=== PATIENT | female | born 1985 | race Caucasian/White ===

== ENCOUNTER 2023-04-15 20:58 | Emergency (ER) | payer OTHER, SELFPAY ==
[2023-04-15 21:08] VITALS: BP 182/102; PULSE 79; RESP 18; TEMP 36.4; O2SAT 97; BMI 48.0
[2023-04-15 21:49] LABS: MANUAL DIFF FLAG NO
[2023-04-15 21:53] LABS: Basophils Absolute Auto 0.1 X10*3/uL (0.0-0.2); Basophils Percent Auto 0.7 % (0-2); Eosinophils Percent Auto 0.1 % (0-4); Hematocrit 41.3 % (37.0-47.0); Hemoglobin 13.7 g/dl (12.0-16.0); Imm Gran Abs Auto 0.05 X10*3/uL (0.00-0.03); Imm Gran Pct Auto 0.4 % (0.0-0.4); Lymphocytes Absolute Auto 1.5 X10*3/uL (1.2-4.9); Mean Corpuscular HGB Conc 33.2 g/dl (31.0-35.0); Mean Corpuscular Hemoglobin 27.7 pg (27.0-33.0); Mean Corpuscular Volume 83.6 fL (80.0-98.0); Mean Platelet Volume 9.7 fL (9.4-12.3); Monocytes Absolute Auto 0.3 X10*3/uL (0.1-1.2); Monocytes Percent Auto 2.1 % (2-11); Neutrophils Absolute Auto 11.5 x10*3/uL (2.0-8.3); Neutrophils Percent Auto 85.7 % (45-73); Platelet Count 472 X10*3/uL (160-400); Red Blood Count 4.94 X10*6/uL (4.20-5.50); White Blood Count 13.4 X10*3/uL (4.8-10.8)
[2023-04-15 21:54] LABS: Appearance Urine Cloudy; Color Urine Dark Yellow; Glucose Urine UA Negative (Negative); Leukocyte Esterase Urine Moderate (2+) (Negative); Nitrite Urine Negative (Negative); Specific Gravity - Urine 1.025 (1.005-1.025); UMIC TRIGGER UACC YES; Urine Blood Trace (Negative); Urine Ketones 80 mg/dL (Negative); Urine Protein 100 (2+) mg/dL (Neg-Trace)
[2023-04-15 21:55] LABS: UPreg QC Valid YES; Urine Pregnancy NEGATIVE (NEGATIVE)
[2023-04-15 21:59] LABS: Bacteria Urine 3+ (None Seen); UACC Culture Trigger YES; WBC Urine 21-50 /HPF (0-5)
[2023-04-15 22:07] LABS: Alanine Aminotransferase 23 U/L (0-31); Albumin Level 4.6 g/dL (3.5-5.0); Alkaline Phosphatase 103 U/L (39-117); Anion Gap 18 (12-20); Aspartate Amino Transferase 21 U/L (5-31); Bilirubin Direct 0.2 mg/dL (0.0-0.5); Bilirubin Total 0.7 mg/dL (0.0-1.0); Blood Urea Nitrogen 10 mg/dL (9-16); Calcium 9.8 mg/dL (8.4-10.2); Carbon Dioxide 19 mmol/L (22-29); Chloride 106 mmol/L (96-108); Creatinine Clr Calc Pharmacy 132.1; Estimated Glomerular Filt Rate > 60; Glucose Random 170 mg/dL (60-115); Lipase 33 U/L (8-78); Sodium 139 mmol/L (135-145); Total Protein 7.9 g/dL (6.5-8.0)
[2023-04-15] MEDS: ondansetron HCL 4 MG/2 ML VIAL IVPUSH (23:06)
[2023-04-15] MEDS: 0.9 % Sodium Chloride 1,000 ML 999 ML IV (23:06)
--- NOTE | 2023-04-15 23:06 | PC.NURSE ---
pt assessed, reported nausea and vomiting after eating. last vomitied while in the waiting room, medicated per MAR
--- OUTSIDE RECORDS SUMMARY | 2023-04-15 23:41 | XMS_ITS | Continuity of Care Document ---
Author Name Unknown Organization [facility] Silviano Bryant lt Address [address] [place] [address]- Care Team Providers Care Organ Teacher Name Role Phone Noni CURTAIN STRETCHER ASSEMBLER, Trupti Leahy Primary Care Physician [phone] [place] [facility] [place]): 04/12/22 - 05/12/22 [facility] Adult [address] [place] [address]- Allergies, Adverse Reactions, Alerts No Known Allergies Immunizations Given and Recorded Vaccine Date Status Refusal Reason Influenza Virus Vaccine (oldterm) 04/08/22 Recorde d [id number] 12y+ bivalent booster vax 04/08/22 Recorded SARS-CoV-2 (COVID-19) mRNA-1273 vaccine 04/03/21 R ecorded influenza virus vaccine, inactivated 03/24/21 Chip rded SARS-CoV-2 (COVID-19) Ad26 vaccine 09/11/20 Record ed Medications busPIRone 10 mg oral tablet 20 mg, 2, tablet, By Mouth, 2 times a day, # 360 tablet, Refills 1, Tot. Refills 1, Maintenance, 02/24/22 12:59:00 EDT, Route to Pharmacy Electronically, [facility]/pharmacy #[id number], 174, cm, 07/19/21 8:39:00EST, Height Start Date: 02/24/22 Status: Ordered FLUoxetine 20 mg oral tablet 3 tablet = 60 mg, By Mouth, Daily, # 270 tablet, 1 Refills, Maintenance, 02/24/22 12:59:00 EDT, [facility]/pharmacy #[id number], 174, cm, 07/19/21 8:39:00 EST, Height Start Date: 02/24/22 Status: Ordered lamotrigine 150 mg oral tablet 1 tablet = 150 mg, By Mouth, 2 times a day, # 180 tablet, 1 Refills, Maintenance, 02/24/22 12:59:00EDT, Tablet, [id number], 174, cm, 07/19/21 8:39:00 EST, Height Start Date: 02/24/22 Status: Ordered Multivitamin Daily, 0 Refills, Maintenance, 07/19/21 8:15:00 EST Start Date: 07/19/21 Status: Ordered Paragard IUD Maintenance, inserted in 2011 or 2012, 07/19/21 8:18:00 EST, Supply Start Date: 07/19/21 Status: Ordered Vitamin C By Mouth, Daily, 0 Refills, Maintenance, 07/19/21 8:15:00 EST Start Date: 07/19/21 Status: Ordered Vitamin D3 oral tablet 1 tablet = 10 mcg, By Mouth, Daily, 0 Refills, Maintenance, 07/19/21 9:06:00 EST Start Date: 07/19/21 Status: Ordered Zinc = 140 mg, By Mouth, Daily, 0 Refills, Maintenance, 07/19/21 8:15:00 EST Start Date: 07/19/21 Status: Ordered Problem List Condition Confirmation Course Effective Dates Status Health St atus Informant Bipolar II disorder Confirmed 12/31/18 Active Body mass index 40+ - severely obese Confirmed 10/24/19 Active Irritable bowel syndrome Confirmed Active Severe obesity Confirmed Active Vitamin D deficiency Confirmed 10/24/19 Active Social History Social History Type Response Smoking Status Never (less than 100 in lifetime) entered on: 07/19/21 Sex Patient Care team information Care Team Personnel Name: Trupti Cheney NP Position: [facility] PCO Associate Professional Member Role: PCP Address: Address: [address] [place] [address]- Care Team Related Persons Name: MARCE HYLTON
--- OUTSIDE RECORDS SUMMARY | 2023-04-15 23:41 | XMS_ITS | Continuity of Care Document ---
Author Name Unknown Organization [facility] Silviano Bryant lt Address [address] [place] [address]- Care Team Providers Care Propulsion Motor And Generator Repairer Name Role Phone Trupti Cheney NP Primary Care Physician Encounter [facility] [place](s[place] 07/19/21 - 07/26/21 [facility] Adult [address] [place] [address]- Encounter Diagnosis Annual physical exam(Discharge Diagnosis) - 07/18/21 Bipolar II disorder(Discharge Diagnosis) - 07/19/21 Body mass index 40+ - severely obese(Discharge Diagnosis) - 07/19/21 Vitamin D deficiency(Discharge Diagnosis) - 07/19/21 Attending Physician: Trupti Cheney NP Allergies, Adverse Reactions, Alerts No Known Allergies Immunizations Given and Recorded Vaccine Date Status Refusal Reason SARS-CoV-2 (COVID-19) mRNA-1273 vaccine 04/03/21 R ecorded influenza virus vaccine, inactivated 03/24/21 Chip rded SARS-CoV-2 (COVID-19) Ad26 vaccine 09/11/20 Record ed Medications busPIRone 10 mg oral tablet TAKE 2 TABLETS BY MOUTH TWICE DAILY Start Date: 07/18/21 Status: Ordered FLUoxetine 20 mg oral capsule Refills 0, Maintenance, 07/18/21 23:40:00 EST, Partial fill upon patient request if the prescription is for a schedule II opioid drug. Start Date: 07/18/21 Status: Ordered lamotrigine 150 mg oral tablet TAKE 1 TABLET BY MOUTH TWICE DAILY Start Date: 07/18/21 Status: Ordered Multivitamin Daily, 0 Refills, Maintenance, [...] Date: 07/19/21 Status: Ordered Problem List Condition Effective Dates Status Health Status Inform ant Bipolar II disorder(Confirmed) 12/31/18 Active Body mass index 40+ - severe ly obese(Confirmed) 10/24/19 Active Irritable bowel syndrome(Confirmed) Active Severe obesity(Confirmed) Active Vitamin D deficiency(Confirmed) 10/24/19 Active Diagnosis Diagnosis Type Effective Dates Health Status Clinical Service Informant Annual physical exam Discharge Diagnosis 07/18/21 Bipolar II disorder Discharge Diagnosis 07/19/21 Body mass index 40+ - severely obese Discharge Diagnosis 07/19/21 Vitamin D deficiency Discharge Diagnosis 07/19/21 Procedures Procedure Date Related Diagnosis Body Site Status History of tonsillectomy 1988 Completed Vital Signs Most recent to oldest [Reference Range]: 1 2 Height 174 cm (07/19/21 8:39 AM) 174 cm (07/19/21 7:54 AM) Weight 137.6 kg (07/19/21 7:54 AM) Oxygen Saturation [94-100 %] 99 % (07/19/21 7:54 AM) Pulse Rate [55-90 bpm] 90 bpm (07/19/21 7:54 AM) Body Mass Index [18.5-24.99] 45.45 *>HHI* (07/19/21 7:54 AM) Blood Pressure [90-138/55-84 mm Hg] 128/ 90mm Hg (07/19/21 8:39 AM) 150/76mm Hg *H* (07/19/21 7:54 AM) Respiratory Rate [16-30 br/min] 18 br/mi n (07/19/21 7:54 AM) Temperature [96.8-100.4 DegF] 98.4 DegF (07/19/21 7:54 AM) Mode of Delivery (Oxygen) Nasal cannula (07/19/21 7:54 AM) Blood pressure sites Arm, left (07/19/21 8:39 AM) Arm, left (07/19/21 7:54 AM) Temperature Route Oral (07/19/21 7:54 AM) Weight Obtained Via Standing scale (07/19/21 7:54 AM) Social History Social History Type Response Smoking Status Never (less than 100 in lifetime) entered on: 07/19/21 Sex
--- OUTSIDE RECORDS SUMMARY | 2023-04-15 23:41 | XMS_ITS | Continuity of Care Document ---
Author Name Unknown Organization [facility] Vitaliy Shore Bryant Address [address] [place] [phone]- Care Team Providers Care Military Technology Specialist Name Role Phone Noni LIFTERTrupti Primary Care Physician Encounter [facility] [place] Date(s): 02/23/23 - 03/25/23 [facility] Vitaliy Shore Adult [address] [place] [address]- Allergies, Adverse Reactions, Alerts No Known Allergies Immunizations Given and Recorded Vaccine Date Status Refusal Reason [id number] bivalent booster vax 08/26/22 Recorded Influenza Virus Vaccine (oldterm) 04/08/22 Recorde d [id number] 12y+ bivalent booster vax 04/08/22 Recorded SARS-CoV-2 (COVID-19) mRNA-1273 vaccine 04/03/21 R ecorded influenza virus vaccine, inactivated 03/24/21 Chip rded influenza virus vaccine, inactivated 04/14/20 Chip rded influenza virus vaccine, inactivated 03/07/18 Chip rded influenza virus vaccine, inactivated 06/29/17 Chip rded SARS-CoV-2 (COVID-19) Ad26 vaccine 09/11/20 Record ed tetanus-diphtheria toxoids (Td) 09/08/17 Recorded Medications busPIRone 10 mg oral tablet 2, tablet, By Mouth, 2 times a day, # 360 tablet, Refills 1, Maintenance, 02/17/23 10:23:00 EDT, Route to Pharmacy Electronically, [id number], 174, cm, 10/17/22 7:42:00 EDT, Height Start Date: 02/17/23 Status: Ordered FLUoxetine (Eqv-Prozac) 20 mg oral tablet 3 tablet, By Mouth, Daily, # 270 tablet, 1 Refills, Maintenance, 02/17/23 10:23:00 EDT, [id number], 174, cm, 10/17/22 7:42:00 EDT, Height Start Date: 02/17/23 Status: Ordered Multivitamin Daily, 0 Refills, Maintenance, [...] Informant Bipolar II disorder Confirmed 12/31/18 Active Generalized anxiety disorder with panic attacks Confirmed Active Hyperlipemia Confirmed Active Irritable bowel syndrome Confirmed Active Severe obesity Confirmed Active Vitamin D deficiency Confirmed 10/24/19 Active Social History Social History Type Response Smoking Status Never (less than 100 in lifetime) entered on: 07/19/21 Sex Patient Care team information Care Team Personnel Name: Trupti Cheney NP Position: S PCO Associate Professional Member Role: PCP Address: Address: [address] [place] [address]- Care Team Related Persons Name: MARCE HYLTON Address: home [address] [place] [phone]
--- OUTSIDE RECORDS SUMMARY | 2023-04-15 23:41 | XMS_ITS | Continuity of Care Document ---
Author Name Unknown Organization [facility] Vitaliy Shore Bryant lt Address [address] [place] [address]- Care Team Providers Care Thermodynamics Professor Name Role Phone Not on Staff, PCP Primary Care Physician Unavail able Encounter [facility] Date(s): 06/08/21 - 07/08/21 [facility] Vitaliy Beachley Adult [address] [place] [address]-
--- OUTSIDE RECORDS SUMMARY | 2023-04-15 23:42 | XMS_ITS | Continuity of Care Document ---
Author Name Unknown Organization [facility] Bryant lt Address [address] [place] [phone]- Care Team Providers Care Precision Layout Worker Name Role Phone Not on Staff, PCP Primary Care Physician Unavail able Encounter [facility] Date(s): 04/07/21 - 05/07/21 [facility] Adult [address] [place] [address]-
--- OUTSIDE RECORDS SUMMARY | 2023-04-15 23:42 | XMS_ITS | Continuity of Care Document ---
Author Name Unknown Organization [facility] Bryant lt Address [address] [place] [address]- Care Team Providers Care Biomedical Electronics Technician Name Role Phone Noni CRUZ, Trupti Leahy Primary Care Physician [phone] Encounter [facility] [place] Date(s): 10/17/22 - 10/24/22 [facility] Adult [address] [place] [address]- Encounter Diagnosis Bipolar II disorder(Discharge Diagnosis) - 10/15/22 Severe obesity(Discharge Diagnosis) - 10/15/22 Hyperlipemia(Discharge Diagnosis) - 10/15/22 Attending Physician: Trupti Cheney NP Referring Physician: Leonarda HUTCHISON, Vaibhav Theodore Allergies, Adverse Reactions, Alerts No Known Allergies Immunizations Given and Recorded Vaccine Date Status Refusal Reason [id number] bivalent booster vax 08/26/22 Recorded Influenza Virus Vaccine (oldterm) 04/08/22 Recorde d [id number] 12y+ bivalent booster vax 04/08/22 Recorded SARS-CoV-2 [...] tablet, Refills 1, Tot. Refills 1, Maintenance, 08/24/22 13:03:00 EDT, Route to Pharmacy Electronically, [facility]/pharmacy #[id number], 174, cm, 07/21/22 8:29:00 EST, Height Start Date: 08/24/22 Status: Ordered FLUoxetine (Eqv-Prozac) 20 mg oral tablet 3 tablet, By Mouth, Daily, # 270 tablet, 1 Refills, Maintenance, 08/24/22 13:17:00 EDT, [facility], 174, cm, 07/21/22 8:29:00 EST, Height Start Date: 08/24/22 Status: Ordered lamotrigine 150 mg oral tablet 1 tablet, By Mouth, 2 times a day, # 180 each, 0 Refills, Maintenance, 08/24/22 13:03:00 EDT, [facility]/pharmacy #[id number], 174, cm, 07/21/22 8:29:00 EST, Height Start Date: 08/24/22 Status: Ordered Multivitamin Daily, 0 Refills, Maintenance, [...] Active Vitamin D deficiency Confirmed 10/24/19 Active Diagnosis Diagnosis Type Effective Dates Health Status Clinical Service Informant Bipolar II disorder Discharge Diagnosis 10/15/22 Severe obesity Discharge Diagnosis 10/15/22 Hyperlipemia Discharge Diagnosis 10/15/22 Vital Signs Most recent to oldest [Reference Range]: 1 2 Height 174 cm (10/17/22 7:42 AM) 174 cm (10/17/22 7:37 AM) Weight 144.3 kg (10/17/22 7:37 AM) Oxygen Saturation [94-100 %] 96 % (10/17/22 7:37 AM) Pulse Rate [55-90 bpm] 76 bpm (10/17/22 7:37 AM) Body Mass Index [18.5-24.99 kg/m2] 47.66 kg/m2 *>HHI* (10/17/22 7:37 AM) Blood Pressure [90-138/55-84 mm Hg] 122/ 82mm Hg (10/17/22 7:42 AM) 127/81mm Hg (10/17/22 7:37 AM) Mode of Delivery (Oxygen) Room air (10/17/22 7:37 AM) Blood pressure sites Arm, left (10/17/22 7:42 AM) Arm, left (10/17/22 7:37 AM) Weight Obtained Via Standing scale (10/17/22 7:37 AM) Social History Social History Type Response Smoking Status Never (less than 100 in lifetime) entered on: 07/19/21 Sex Patient Care team information Care Team Personnel Name: Trupti Cheney NP Position: S PCO Associate Professional Member Role: PCP Address: Address: [address] [place] [phone]- Care Team Related Persons Name: MARCE HYLTON Address: home [address] [place] [id number]
--- OUTSIDE RECORDS SUMMARY | 2023-04-15 23:42 | XMS_ITS | Continuity of Care Document ---
Author Name Unknown Organization [facility] Vitaliy Shore Bryant lt Address [address] [place] [id number]- Care Team Providers Care Radio Division Captain Name Role Phone Noni APPEALS REPRESENTATIVETrupti Primary Care Physician [phone] Encounter [facility] Date(s): 07/22/22 - 08/21/[address] [facility] Vitaliy Beachley Adult [address] [place] [address]- Allergies, Adverse Reactions, Alerts No Known Allergies Immunizations Given and Recorded Vaccine Date Status Refusal Reason Influenza Virus Vaccine (oldterm) 04/08/22 Recorde d [id number] 12y+ bivalent booster vax 04/08/22 Recorded SARS-CoV-2 [...] times a day, # 360 tablet, Refills 0, Maintenance, 06/20/22 8:30:00 EST, Route to Pharmacy Electronically, [id number], 174, cm, 07/19/21 8:39:00 EST, Height Start Date: 06/20/22 Status: Ordered FLUoxetine 20 mg oral tablet 3 tablet = 60 mg, By Mouth, Daily, # 270 tablet, 1 Refills, Maintenance, 02/24/22 12:59:00 EDT, [facility]/pharmacy #[id number], 174, cm, 07/19/21 8:39:00 EST, Height Start Date: 02/24/22 Status: Ordered lamotrigine 150 mg oral tablet 1 tablet, By Mouth, 2 times a day, # 180 each, 0 Refills, Maintenance, 06/20/22 8:30:00 EST, [id number], 174, cm, 07/19/21 8:39:00 EST, Height Start Date: 06/20/22 Status: Ordered Multivitamin Daily, 0 Refills, Maintenance, [...] Team Personnel Name: Trupti Cheney NP Position: [facility] PCO Associate Professional Member Role: PCP Address: Address: [address] [place] [address]- Care Team Related Persons Name: MARCE HYLTON Address: home [address] [place] [id number]
--- OUTSIDE RECORDS SUMMARY | 2023-04-15 23:42 | XMS_ITS | Continuity of Care Document ---
Author Name Unknown Organization [facility] Silviano Bryant Address [address] [place] [id number]- Care Team Providers Care Shelter Case Manager Name Role Phone Trupti Cheney NP Primary Care Physician [phone] Encounter [facility] Date(s): 07/21/22 - 07/28/22 [facility] Adult [address] [place] [id number]- Encounter Diagnosis Annual physical exam(Discharge Diagnosis) - 07/20/22 Vitamin D deficiency(Discharge Diagnosis) - 07/20/22 Blood pressure elevated without history of HTN(Discharge Diagnosis) - 07/21/22 Bipolar II disorder(Discharge Diagnosis) - 07/20/22 Generalized anxiety disorder with panic attacks(Discharge Diagnosis) - 07/21/22 Severe obesity(Discharge Diagnosis) - 07/20/22 Attending Physician: Trupti Cheney NP Referring Physician: Johan HUTCHISON, Arun Palafox Allergies, Adverse Reactions, Alerts No Known Allergies Immunizations Given and Recorded Vaccine Date Status Refusal Reason Influenza Virus Vaccine (oldterm) 04/08/22 Recorde d [id number] 12y+ bivalent booster vax 04/08/22 Recorded SARS-CoV-2 (COVID-19) mRNA-1273 vaccine 04/03/21 R ecorded influenza virus vaccine, inactivated 03/24/21 Chip rded influenza virus vaccine, inactivated 04/14/20 Chip rded influenza virus vaccine, inactivated 03/07/18 Chip rded influenza virus vaccine, inactivated 06/29/17 Chpi rded SARS-CoV-2 (COVID-19) Ad26 vaccine 09/11/20 Record ed tetanus-diphtheria toxoids (Td) 09/08/17 Recorded Medications busPIRone 10 mg oral tablet 2, tablet, By Mouth, 2 times a day, # 360 tablet, Refills 0, Maintenance, 06/20/22 8:30:00 EST, Route to Pharmacy Electronically, [id number], 174, cm, 07/19/21 8:39:00 EST, Height Start Date: 06/20/22 Status: Ordered FLUoxetine 20 mg oral tablet 3 tablet = 60 mg, By Mouth, Daily, # 270 tablet, 1 Refills, Maintenance, 02/24/22 12:59:00 EDT, [facility]/pharmacy #[id number], 174, cm, 07/19/21 8:39:00 EST, Height Start Date: 02/24/22 Status: Ordered lamotrigine 150 mg oral tablet 1 tablet, By Mouth, 2 times a day, # 180 each, 0 Refills, Maintenance, 06/20/22 8:30:00 EST, [id number], 174, cm, 07/19/21 8:39:00 EST, [...] Service Informant Annual physical exam Discharge Diagnosis 07/20/22 Severe obesity Discharge Diagnosis 07/20/22 Bipolar II disorder Discharge Diagnosis 07/20/22 Vitamin D deficiency Discharge Diagnosis 07/20/22 Generalized anxiety disorder with panic attacks Discharge Diagnosis 07/21/22 Blood pressure elevated without history of HTN Discharge Diagnosis 07/21/22 Vital Signs Most recent to oldest [Reference Range]: 1 2 Height 174 cm (07/21/22 8:29 AM) 174 cm (07/21/22 8:07 AM) Weight 148.3 kg (07/21/22 8:07 AM) Oxygen Saturation [94-100 %] 98 % (07/21/22 8:07 AM) Pulse Rate [55-90 bpm] 84 bpm (07/21/22 8:07 AM) Body Mass Index [18.5-24.99 kg/m2] 48.98 kg/m2 *>HHI* (07/21/22 8:07 AM) Blood Pressure [90-138/55-84 mm Hg] 138/ 98mm Hg (07/21/22 8:29 AM) 146/100mm Hg *H* (07/21/22 8:07 AM) Respiratory Rate [16-30 br/min] 16 br/mi n (07/21/22 8:07 AM) Temperature [96.8-100.4 DegF] 98.3 DegF (07/21/22 8:07 AM) Mode of Delivery (Oxygen) Room air (07/21/22 8:07 AM) Blood pressure sites Arm, right (07/21/22 8:29 AM) Arm, right (07/21/22 8:07 AM) Temperature Route Oral (07/21/22 8:07 AM) Weight Obtained Via Standing scale (07/21/22 8:07 AM) Social History Social History Type Response Smoking Status Never (less than 100 in lifetime) entered on: 07/19/21 Sex Note * Crystal Gayle: PERFORM, SIGN, VERIFY Event Display: Patient Education/Instruction Authored Date: [id number] [facility] *MAXWELL Finch Clinical Summary Name DUSTIN GRANDE Age 36 Years 1985 PCP Trupti Cheney NP PCP Visit Date 07/21/2022 08:01:00 Additional Instructions: Scheduled Appointments?? Future Appointments ?No Future Appointments Scheduled Follow-Up Instructions ?? With: Address: When: Noni CRUZTrupti In 1 month Diagnosis Bipolar II disorder; Generalized anxiety disorder; Vitamin D deficiency, unspecified; Encounter forgeneral adult medical examination without abnormal findings; Morbid (severe) obesity due to excess calories Medications: Please continue your medications until treatment is completed or stopped by your provider. Discuss any questions related to medications with your provider. Medications to Continue with No Changes These medications were not printed or sent to your pharmacy Ascorbic Acid (Vitamin C) Oral Daily. Next Dose: BusPIRone (busPIRone 10 mg oral tablet) 2 tab(s) Oral twice a day. Refills: 0. Next Dose: Cholecalciferol (Vitamin D3 oral tablet) 1 tab(s) Oral Daily. Next Dose: Durable Medical Equipment (Paragard IUD) inserted in 2011 or 2012. Next Dose: Fluoxetine (FLUoxetine 20 mg oral tablet) 3 tab(s) Oral Daily. Refills: 1. Next Dose: Lamotrigine (lamotrigine 150 mg oral tablet) 1 tab(s) Oral twice a day. Refills: 0. Next Dose: Multivitamin Daily. Next Dose: Zinc Sulfate (Zinc) 140 Milligram Oral Daily. Next Dose: Allergy Info:?? NKA Medications Given This Visit Future Orders ?Hepatitis C Ab? Order Date:07/21/22?- Complete on or after?07/21/22 ?Vitamin D 25 Hydroxy Level? Order Date:07/21/22?- Complete on or after?07/21/22 ?Comprehensive Metabolic Panel? Order Date:07/21/22?- Complete on or after?07/21/22 ?Lipid Panel? Order Date:07/21/22?- Complete on or after?07/21/22 Vital Signs Height 174 cm Weight 148.3 kg BMI 48.98 kg/m2 Blood Pressure 138 mm Hg/98 mm Hg Temperature 98.3 DegF Pulse Rate 84 bpm Respiratory Rate 16 br/min 02 Sat Mode of Delivery 98 %/Room air You can now view a summary of your hospital visit from the comfort of your home through a free online portal called mLED. mLED is a website that allows you to securely view your medical information including discharge summary, medications and follow-up visits. ??You can alsosend a secure electronic message to your doctor???s office to request appointments, renew medications or just ask a question. You can enroll at [email or web address] or register during your next office visit. Disclaimer:?? The information provided is of a general nature and is intended to be used in conjunction with the recommendations and advice of your health care practitioner. ??Every effort has been made to ensure that the information provided is accurate and complete at the time it is provided to you however, as your needs change, or, as new ??information becomes available, different or additional instructions may be required. If you have questions, please consult with your primary care provider or pharmacist, as appropriate. ??This information is not intended to serve as substitution for assessment and evaluation by a qualified health care provider. If you do not have a primary care provider, you may find a [facility] provider by calling [facility] [employer] at [phone]. For information about the plan of care including goals and instructions for your diagnosis, please see the patient education orders section of this document. Patient Education Materials?? The content of this educational material or handout may have been modified, supplemented, or adapted from its original content and format to support your individualized medical care. Prevention Guidelines,??Women Ages 18 to 39 Screening tests and vaccines are an important part of managing your health. Health counseling is essential, too. Below are guidelines for these, for women ages 18 to 39. Talk with your healthcare provider to make sure you???re up-to-date on what you need. Screening Who needs it How often Alcohol misuse All women in this age group At routine exams Blood pressure All women in this age group Every 2 years if your blood pressure is less than 120/80 mm Hg; yearly if your systolic blood pressure is 120 to 139 mm Hg, or your diastolic blood pressure reading is 80 to 89 mm Hg Breast cancer All women in this age group should talk with their healthcare providers about the need for clinicalbreast exams (CBE)1 Clinical breast exam every 3 years1 Cervical cancer Women ages 21 and older Women between ages 21 and 29 should have a Pap test every 3 years; women between ages 30 and 65 areadvised to have a Pap test plus an HPV test every 5 years Chlamydia Sexually active women ages 24 and younger, and women at increased risk for infection Every 3 years if you're at risk or have symptoms Depression All women in this age group At routine exams Diabetes mellitus, type 2 Adults with no symptoms who are overweight or obese and have 1 or more other risk factors for diabetes At least every 3 years Gonorrhea Sexually active women at increased risk for infection At routine exams Hepatitis C Anyone at increased risk At routine exams HIV All women At routine exams Obesity All women in this age group At routine exams Syphilis Women at increased risk for infection ??? talk with your healthcare provider At routine exams Tuberculosis Women at increased risk for infection ??? talk with your healthcare provider Ask your healthcare provider Vision All women in this age group At least 1 complete exam in your 20s, and 2 in your 30s Vaccine2 Who needs it How often Chickenpox (varicella) All women in this age group who have no record of this infection or vaccine 2 doses; the second dose should be given 4 to 8 weeks after the first dose Hepatitis A Women at increased risk for infection ??? talk with your healthcare provider 2 doses given at least 6 months apart Hepatitis B Women at increased risk for infection ??? talk with your healthcare provider 3 doses over 6 months; second dose should be given 1 month after the first dose; the third dose should be given at least 2 months after the second dose and at least 4 months after the first dose Haemophilus influenzae??Type B (HIB) Women at increased risk for infection ??? talk with your healthcare provider 1 to 3 doses Human papillomavirus (HPV) All women in this age group up to age 26 3 doses; the second dose should be given 1 to 2 months after the first dose and the third dose given 6 months after the first dose Influenza (flu) All women in this age group Once a year Measles, mumps, rubella (MMR) All women in this age group who have no record of these infections or vaccines 1 or 2 doses Meningococcal Women at increased risk for infection ??? talk with your healthcare provider 1 or more doses Pneumococcal conjugate vaccine (PCV13)??and pneumococcal polysaccharide??vaccine??(PPSV23) Women at increased risk for infection ??? talk with your healthcare provider PCV13: 1 dose ages 19 to 65 (protects against 13 types of pneumococcal bacteria) PPSV23: 1 to??2 doses through age 64, or 1 dose at 65 or older (protects against 23 types of pneumococcal bacteria) Tetanus/diphtheria/pertussis (Td/Tdap) booster All women in this age group Td every 10 years, or a one-time dose of Tdap instead of a Td booster after age 18, then Td every 10 years Counseling Who needs it How often BRCA gene mutation testing for breast and ovarian cancer susceptibility Women with increased risk for having gene mutation When your risk is known Breast cancer and chemoprevention Women at high risk for breast cancer When your risk is known Diet and exercise Women who are overweight or obese When diagnosed, and then at routine exams Domestic violence Women at the age in which they are able to have children At routine exams Sexually transmitted infection prevention Women who are sexually active At routine exams Skin cancer Prevention of skin cancer in fair-skinned adults through age 24 At routine exams Use of tobacco and the health effects it can cause All women in this age group Every visit 1According to the ACS, women ages 20 to 39 years should have a clinical breast exam (CBE) as part of their routine health exam every 3 years, and breast self- exams are an option for women starting intheir 20s.??However, the ??USPSTF does not recommend CBE. 2Those who are 18 years of age, who are not up-to-date on their childhood immunizations, should receive all appropriate catch-up vaccines recommended by the CDC. ?? 4765-3418 The [employer]. [address] [place] [address], [place] [address]. All rights reserved. This information is not intended as a substitute for professional medical care. Always follow your healthcare professional's instructions. Patient Care team information Care Team Personnel Name: Noni CRUZ, Trupti Leahy Position: [facility] PCO Associate Professional Member Role: PCP Address: Address: [address] [place] [phone]- Care Team Related Persons Name: MARCE HYLTON Address: home [address] [place] [id number]
--- OUTSIDE RECORDS SUMMARY | 2023-04-15 23:42 | XMS_ITS | Continuity of Care Document ---
Author Name Unknown Organization [facility] Vitaliy Shore Bryant Address [address] [place] [phone]- Care Team Providers Care Fire Control Officer Name Role Phone Noni GAS STATION SUPERVISORTrupti Primary Care Physician Encounter [facility] Date(s): 02/17/23 - 03/19/23 [facility] Vitaliy Shore Adult [address] [place] [address]- Allergies, Adverse Reactions, Alerts No Known Allergies Immunizations Given and Recorded Vaccine Date Status Refusal Reason [id number] bivalent booster vax 08/26/22 Recorded Influenza Virus Vaccine (oldterm) 04/08/22 Recorde d [id number] 12y+ bivalent booster vax 04/08/22 Recorded SARS-CoV-2 [...] 02/17/23 10:23:00 EDT, Route to Pharmacy Electronically, [id number], 174, cm, 10/17/22 7:42:00 EDT, Height Start Date: 02/17/23 Status: Ordered FLUoxetine (Eqv-Prozac) 20 mg oral tablet 3 tablet, By Mouth, Daily, # 270 tablet, 1 Refills, Maintenance, 02/17/23 10:23:00 EDT, [id number], 174, cm, 10/17/22 7:42:00 EDT, Height Start [...] Associate Professional Member Role: PCP Address: Address: [address] [place] [id number]- Care Team Related Persons Name: MARCE HYLTON Address: home [address] [place] [id number]
--- NOTE | 2023-04-15 23:54 | ED_ITS ---
HPI - General Adult General Chief complaint: Abdominal Pain Stated complaint: vomiting Time Seen by Provider: 04/15/23 22:58 Source: patient and family Mode of arrival: ambulatory Limitations: no limitations History of Present Illness HPI narrative: Patient is a 37-year-old female presenting to the emergency department with complaint of sudden onset nausea and vomiting while at dinner earlier tonight. Reports that she did have one Yoko Frankie which is not typical for her, then ate one crab rangoon and some noodles and developed sudden onset nausea and vomiting. Denies any diarrhea. Denies any abdominal pain. Denies any dysuria, frequency, hematuria or other urinary symptoms. Denies fevers. Denies any chest pain, shortness of breath or palpitations. MD complaint: Nausea and vomiting Onset (ago): hour(s) Associated symptoms: denies other symptoms Treatments prior to arrival: none Related Data Previous Rx's Medication Instructions Recorded nitrofurantoin macrocrystal 100 mg 100 mg PO BID 5 days #10 caps 04/16/23 capsule ondansetron 4 mg disintegrating 4 mg PO Q8H PRN nausea and 04/16/23 tablet vomiting #12 tabs Allergies Allergy/AdvReac Type Severity Reaction Status Date / Time No Known Allergies Allergy Verified 04/15/23 21:15 Review of Systems 2 Review of Systems: As per HPI. Yes all other systems are reviewed and are negative Constitutional: Constitutional: Reports as per HPI [facility] Social History Social History Smoked in Last 30 Days: No Use of substances other than those prescribed or required for medical reasons: No Advance Directives: No Advance Directives Information Provided: Yes Patient : No Physical Exam ED Vital Signs: Vital Signs - 24 hr 04/15/23 21:08 Temperature 97.6 F Pulse Rate 79 Respiratory Rate 18 Blood Pressure 182/102 H Pulse Oximetry 97 Oxygen Delivery Method Room Air BMI result Body Mass Index 48.0 Vital signs have been reviewed and appear to be correct. Blood pressure elevated. Heart rate normal. Respiratory rate normal. Temperature normal. Oxygen saturation normal. Const General: cooperative, healthy appearing and no acute distress Orientation/consciousness: oriented to person, oriented to place, oriented to time and patient oriented x3 Limitations: no limitations HENMT Head: Yes normocephalic and Yes atraumatic Ears: external ears normal General nose exam: Normal external nose present Face and sinus: Yes face symmetric Mouth: oropharynx normal and moist mucous membranes Throat: Yes uvula midline Eyes Pupils: Equal, round and reactive pupils present Neck Neck: Yes normal visual inspection and Yes supple Resp Effort & Inspection: normal respiratory effort and able to speak in complete sentences Auscultation: clear to auscultation bilaterally Cardio Rate: regular rate Rhythm: regular rhythm Heart sounds: S1 normal heart sound present and S2 normal heart sound present GI Palpation (GI): Soft to palpation and nontender Auscultation: normoactive bowel sounds General: Yes no CVA tenderness Back/Spine/Pelvis Back: no CVA tenderness Skin General skin exam: elasticity normal and turgor normal Neuro General: oriented to person, oriented to place, oriented to time, patient oriented x3, moves all extremities, no focal motor deficits and CN's II-XI intact bilaterally Cranial nerves: Yes Equal, round and reactive pupils present Cognition (Neuro): normal cognition Extrem General: Yes full ROM, Yes no pedal edema and Yes no calf tenderness Psych Mental Status: mental status grossly normal Affect: normal affect Thought process: Normal thought process present Medications Administered Discontinued Medications Generic Name Dose Route Start Last Admin Trade Name Freq PRN Reason Stop Dose Admin Sodium Chloride 1,000 mls @ 999 mls/hr 04/15/23 23:00 04/16/23 00:18 Ns IV 04/16/23 00:00 Infused .Q1H1M AZEB Infusion Sodium Chloride 1,000 mls @ 999 mls/hr 04/15/23 23:45 04/16/23 01:42 Ns IV 04/16/23 00:45 999 mls/hr .Q1H1M AZEB Administration Metoclopramide HCl 10 mg 04/15/23 23:53 04/16/23 00:19 Metoclopramide Hcl 10 Mg/2 Ml Vial IVPUSH 04/15/23 23:54 10 mg ONCE ONE Administration Ondansetron HCl 4 mg 04/15/23 22:58 04/15/23 23:06 Ondansetron Hcl 4 Mg/2 Ml Vial IVPUSH 04/15/23 22:59 4 mg ONCE ONE Administration Prochlorperazine Edisylate 5 mg 04/16/23 00:54 04/16/23 01:05 Prochlorperazine Edisylate 10 Mg/2 Ml Vial IVPUSH 04/16/23 00:55 5 mg ONCE ONE Administration Prochlorperazine Edisylate 5 mg 04/16/23 01:26 04/16/23 01:42 Prochlorperazine Edisylate 10 Mg/2 Ml Vial IVPUSH 04/16/23 01:27 5 mg ONCE ONE Administration Medical Decision Making Medical Decision Making [facility] Narrative: Patient is a 37-year-old female presenting to the emergency department with complaint of sudden onset nausea and vomiting while at dinner earlier tonight. On exam patient is awake, A+Ox3, hypertensive, VS otherwise WNL, afebrile, normal neurological exam without focal deficits, physical exam findings as above. Patient denies history of HTN but states BP is elevated due to discomfort. Given reported symptoms and physical exam findings, initial differential includes food borne illness, gastroenteritis, . Do not suspect obstruction, ACS, cholecystitis, pancreatitis. Labs notable for mild leukocytosis, no significant electrolyte abnormalities. Urine positive for 2+ leukocytes, 21-50 wbc's, 3+ bacteria, will treat for UTI. Patient reports ongoing nausea despite multiple medications, but is not actively vomiting. Feel patient is stable for discharge home at this time. Will prescribe zofran for nausea. Return precautions discussed at bedside. Instructed patient follow-up with primary care provider this week. Patient and verbalized understanding of and agreement with plan. Differential Diagnosis Differential Diagnoses: The differential diagnosis associated with the presentation includes As per MDM. Lab Data [facility] Lab Attestation statement: I reviewed the patient's lab results. As per MDM. 04/15/23 21:41 04/15/23 21:41 Labs: Lab Results 04/15/23 Range/Units 21:41 WBC 13.4 H (4.8-10.8) X10*3/uL RBC 4.94 (4.20-5.50) X10*6/uL Hgb 13.7 (12.0-16.0) g/dl Hct 41.3 (37.0-47.0) % MCV 83.6 (80.0-98.0) fL MCH 27.7 (27.0-33.0) pg MCHC 33.2 (31.0-35.0) g/dl RDW 15.0 (11.0-16.0) % Plt Count 472 H (160-400) X10*3/uL MPV 9.7 (9.4-12.3) fL Immature Gran % (Auto) 0.4 (0.0-0.4) % Neut % (Auto) 85.7 H (45-73) % Lymph % (Auto) 11.0 L (20-40) % [place] % (Auto) 2.1 (2-11) % Eos % (Auto) 0.1 (0-4) % Baso % (Auto) 0.7 (0-2) % Lymph # (Auto) 1.5 (1.2-4.9) X10*3/uL [place] # (Auto) 0.3 (0.1-1.2) X10*3/uL Eos # (Auto) 0.0 (0.0-0.4) X10*3/uL Baso # (Auto) 0.1 (0.0-0.2) X10*3/uL Abs Immat Gran (auto) 0.05 H (0.00-0.03) X10*3/uL Absolute Neuts (auto) 11.5 H (2.0-8.3) x10*3/uL Absolute Nucleated RBC 0.000 (0.0-0.012) X10*3/uL Nucleated RBC % (auto) 0.0 (0.0-0.2) /100WBC Sodium 139 (135-145) mmol/L Potassium 4.0 (3.3-5.1) mmol/L Chloride 106 (96-108) mmol/L Carbon Dioxide 19 L (22-29) mmol/L Anion Gap 18 (12-20) BUN 10 (9-16) mg/dL Creatinine 0.88 (0.5-1.4) mg/dL Estim Creat Clear Calc 132.1 Estimated GFR > 60 Random Glucose 170 H (60-115) mg/dL Calcium 9.8 (8.4-10.2) mg/dL Total Bilirubin 0.7 (0.0-1.0) mg/dL Direct Bilirubin 0.2 (0.0-0.5) mg/dL AST 21 (5-31) U/L ALT 23 (0-31) U/L Alkaline Phosphatase 103 (39-117) U/L Total Protein 7.9 (6.5-8.0) g/dL Albumin 4.6 (3.5-5.0) g/dL Lipase 33 (8-78) U/L Urine Color Dark Yellow Urine Appearance Cloudy Urine pH 7.0 (5.0-9.0) Ur Specific [place] 1.025 (1.005-1.025) Urine Protein 100 (2+) H (Neg-Trace) mg/dL Urine Glucose (UA) Negative (Negative) mg/dL Urine Ketones 80 (Negative) mg/dL Urine Blood Trace H (Negative) Urine Nitrite Negative (Negative) Ur Leukocyte Esterase Moderate (2+) H (Negative) Urine RBC 11-20 H (0-2) /HPF Urine WBC 21-50 H (0-5) /HPF Ur Squamous Epith Cells 6-10 (0-2) /HPF Urine Bacteria 3+ (None Seen) Hyaline Casts 3-5 (0-2) /LPF Urine Test NEGATIVE (NEGATIVE) External Record Review External record reviewed: Inpatient record, Office record and Outpatient record Prescription Management I considered prescription management with: Antibiotic and Other Discharge Plan Discharge Clinical Impression: Nausea & vomiting, Urinary tract infection Patient Disposition: Home, Self-Care Instructions: Urinary Tract Infection in Women (DC), Acute Nausea and Vomiting (ED) Additional Instructions: You were evaluated in the emergency department today for nausea and vomiting. Your symptoms are likely related to a food borne illness or a viral illness. You are being prescribed ondansetron which you can take every 8 hours as needed for nausea. Please follow-up with your primary care provider this week. Return to the emergency department if you develop abdominal pain, persistent vomiting, fever 100.4? F or greater, dizziness, lightheadedness, fainting, or any other concerning symptoms. Prescriptions: New ondansetron 4 mg tablet,disintegrating 4 mg PO Q8H PRN (Reason: nausea and vomiting) Qty: 12 0RF nitrofurantoin macrocrystal 100 mg capsule 100 mg PO BID 5 Days Qty: 10 0RF Rx Instructions: must administer with a meal/food
[2023-04-16] MEDS: Metoclopramide HCl 10 MG/2 ML VIAL IVPUSH (00:19)
[2023-04-16] MEDS: Prochlorperazine Edisylate 10 MG/2 ML VIAL 5 MG IVPUSH ×2 (01:05→01:42)
--- NOTE | 2023-04-16 01:05 | PC.NURSE ---
pt reassessed after adminstration of medication per MAR. pt reported nausea has not subsided, PA aware, medicated per MAR
--- NOTE | 2023-04-16 01:41 | PC.NURSE ---
pt assessed, reported nausea medication did not work, PA aware, medicated with 2nd dose of compazine ivp
[2023-04-16] MEDS: 0.9 % Sodium Chloride 1,000 ML 999 ML IV (01:42)
== END 2023-04-16 02:34 | disposition home or self-care (01) ==
PROVIDERS: Emergency Provider Student in an Organized Health Care Education/Training Program; PCP Nurse Practitioner Family
DX: N39.0 Urinary tract infection, site not specified (principal); R11.2 Nausea with vomiting, unspecified
CPT/HCPCS: 36415; 80048; 80076; 81001; 81025; 83690; 85025; 87086; 96361; 96374; 96375; 96376; 99284; J0737; J2405; J2765